=== PATIENT | male | born 1950 | race Caucasian/White ===

== ENCOUNTER 2024-01-10 19:04 | Observation (INO) | payer MEDICARE ==
[~2024-01-10] VITALS: Ht 175.3 cm; Wt 83.0 kg
[2024-01-10 19:10] VITALS: TEMP 99.6
[2024-01-10] MEDS: ASPIRIN 81 MG CHEW TAB PO ONE ×2 (20:00→22:00)
[2024-01-10 21:23] VITALS: PULSE 72; RESP 18
[2024-01-10] MEDS: NITROGLYCERIN 0.4 MG SUBL SL ONE (21:24)
[2024-01-10] MEDS ORDERED: ONDANSETRON HCL INJ 2MG/ML 2ML 2 MG/ML VIAL IV PRN (22:00)
[2024-01-10 23:00] VITALS: BP 139/73; PULSE 82; RESP 22; TEMP 98.5; O2SAT 98
[2024-01-10 23:30] VITALS: BP_SYST 108; BP_SYST 139; BP_DIAS 62; BP_DIAS 73; PULSE 74; PULSE 82; RESP 18; RESP 20; TEMP 98.5; O2SAT 97; O2SAT 98
[2024-01-11] VITALS (10 sets, daily range): BP systolic 116–141; BP diastolic 64–78; PULSE 62–82; RESP 16–20; TEMP 97.4–98.5; O2SAT 96–99
[2024-01-11] MEDS ORDERED: POTASSIUM CITR10 MEQ PO (02:32)
[2024-01-11] MEDS ORDERED: METOPROLOL TART25 MG PO (02:49)
[2024-01-11] MEDS ORDERED: ALLOPURINOL100 MG PO (02:49)
[2024-01-11] MEDS ORDERED: CLOPIDOGREL75 MG PO (02:49)
[2024-01-11] MEDS ORDERED: LEVOTHYROXINE88 MCG PO (02:50)
[2024-01-11] MEDS ORDERED: PRAVASTATIN SOD80 MG PO (02:53)
[2024-01-11] MEDS ORDERED: ASPIRIN81 MG PO (02:53)
[2024-01-11] MEDS ORDERED: ZETIA10 MG PO (02:59)
[2024-01-11] MEDS ORDERED: FENOFIBRATE145 MG PO (03:01)
[2024-01-11] MEDS ORDERED: COQ-10100 MG PO (03:03)
[2024-01-11] MEDS ORDERED: VENTOLIN HFA18 GM INH (03:06)
[2024-01-11] MEDS ORDERED: FLONASE ALLERG9.9 ML INH (03:10)
[2024-01-11 08:10] LABS: CREATINE KINASE 119 IU/L (30-200)
[2024-01-11 08:21] LABS: TROPONIN I < 0.001 ng/mL (0-0.300)
[2024-01-11] MEDS: ASPIRIN 81 MG ENTERIC COATED PO SCH (09:00)
[2024-01-11] MEDS ORDERED: ALBUTEROL 90 MCG/ACT INHALER INH PRN (11:45)
[2024-01-11] MEDS ORDERED: ACETAMINOPHEN 325 MG TAB PO PRN (11:45)
[2024-01-11 12:15] LABS: BASOPHILS # (AUTO) 0.1 (0.0-0.1); BASOPHILS % 0.3 % (0.0-1.0); EOSINOPHILS # (AUTO) 0.3 (0.0-0.4); HEMOGLOBIN 11.9 g/dL (14.0-18.0); LYMPHOCYTES # (AUTO) 13.5 (1.0-3.2); LYMPHOCYTES % 44.5 % (18.0-39.1); MEAN CORPUSCULAR HEMOGLOBIN 28.2 pg (28-32); MEAN CORPUSCULAR HGB CONC 31.3 g/dL (31-35); MONOCYTES # (AUTO) 14.1 (0.2-0.8); MONOCYTES % 46.6 % (4.4-11.3); NEUTROPHILS # (AUTO) 2.3 (2.1-6.9); NEUTROPHILS % 7.5 % (38.7-80.0); PLATELET COUNT 133 x10e3/uL (140-360); RED BLOOD COUNT 4.22 x10e6/uL (4.3-5.7); RED CELL DISTRIBUTION WIDTH 14.5 % (11.7-14.4); WHITE BLOOD COUNT 30.32 x10e3/uL (4.8-10.8)
[2024-01-11 12:24] LABS: ALBUMIN 4.1 g/dL (3.5-5.0); ALBUMIN/GLOBULIN RATIO 2.2 (0.8-2.0); BILIRUBIN,TOTAL 0.4 mg/dL (0.2-1.2); CREATININE, SERUM 1.53 mg/dL (0.72-1.25)
[2024-01-11 13:46] LABS: LYMPHOCYTES % (MANUAL) 58 % (19-48); MONOCYTES % (MANUAL) 8 % (3.4-9.0); NEUTROPHILS % (MANUAL) 19 % (40-74); REACTIVE LYMPHOCYTES 15
[2024-01-11 13:49] LABS: PLATELET ESTIMATE ADEQUATE; PLATELET MORPHOLOGY COMMENT NORMAL; RBC MORPHOLOGY COMMENT NORMAL
[2024-01-11] MEDS: SODIUM CHLORIDE 0.9% 1000ML 1,000 ML IV SCH (14:12)
[2024-01-11] MEDS: POTASSIUM CITRATE ER 10 MEQ TAB PO SCH (14:12)
[2024-01-11] MEDS: ALBUTEROL/IPRATROPIUM 3 ML NEB NEB SCH (14:34)
[2024-01-11] MEDS: METOPROLOL TARTRATE 25 MG TAB PO SCH (17:03)
[2024-01-11] MEDS: GUAIFENESIN/DEXTROMETHORPHAN LIQD 5 ML UDC NG PRN (17:06)
[2024-01-11 17:59] LABS: BILIRUBIN,URINE NEGATIVE (NEGATIVE); CLARITY,URINE CLEAR (CLEAR); COLOR,URINE YELLOW (YELLOW); GLUCOSE, URINE NEGATIVE (NEGATIVE); KETONES,URINE NEGATIVE (NEGATIVE); LEUKOCYTE ESTERASE ,URINE NEGATIVE (NEGATIVE); NITRITE,URINE NEGATIVE (NEGATIVE); PH,URINE 6 (5 - 7); PROTEIN,URINE DIPSTICK NEGATIVE (NEGATIVE); URINE UROBILINOGEN 0.2 mg/dL (0.2 - 1)
[2024-01-11 18:05] LABS: WBC,URINE (MAN) 0-5 /HPF (0-5)
[2024-01-11 18:06] LABS: BACTERIA,URINE FEW /HPF; EPITHELIAL CELLS,URINE RARE /LPF
[2024-01-11] MEDS: EZETIMIBE 10 MG TAB PO SCH (21:02)
[2024-01-11] MEDS: SIMVASTATIN 40 MG TAB PO SCH (21:03)
[2024-01-11] MEDS: CLOPIDOGREL BISULFATE 75 MG TAB PO SCH (22:03)
[2024-01-12] VITALS (9 sets, daily range): BP systolic 98–147; BP diastolic 59–69; PULSE 57–70; RESP 16–18; TEMP 97.5–98.4; O2SAT 97–100
[2024-01-12 05:38] LABS: BASOPHILS # (AUTO) 0.1 (0.0-0.1); BASOPHILS % 0.3 % (0.0-1.0); EOSINOPHILS # (AUTO) 0.3 (0.0-0.4); EOSINOPHILS % 1.1 % (0.0-6.0); HEMATOCRIT 36.1 % (38.2-49.6); HEMOGLOBIN 11.6 g/dL (14.0-18.0); LYMPHOCYTES # (AUTO) 12.9 (1.0-3.2); LYMPHOCYTES % 49.6 % (18.0-39.1); MEAN CORPUSCULAR HEMOGLOBIN 28.8 pg (28-32); MEAN CORPUSCULAR HGB CONC 32.1 g/dL (31-35); MEAN CORPUSCULAR VOLUME 89.6 fL (81-99); MONOCYTES # (AUTO) 10.2 (0.2-0.8); MONOCYTES % 39.4 % (4.4-11.3); NEUTROPHILS # (AUTO) 2.5 (2.1-6.9); NEUTROPHILS % 9.5 % (38.7-80.0); PLATELET COUNT 125 x10e3/uL (140-360); RED BLOOD COUNT 4.03 x10e6/uL (4.3-5.7); RED CELL DISTRIBUTION WIDTH 14.3 % (11.7-14.4)
[2024-01-12] MEDS: LEVOTHYROXINE SODIUM 88 MCG TAB PO SCH (05:40)
[2024-01-12 06:00] LABS: CALCIUM 8.8 mg/dL (8.4-10.2); CREATININE, SERUM 1.35 mg/dL (0.72-1.25)
[2024-01-12 06:33] LABS: CREATINE KINASE 77 IU/L (30-200)
[2024-01-12 06:40] LABS: TROPONIN I < 0.001 ng/mL (0-0.300)
[2024-01-12 07:51] LABS: EOSINOPHILS % (MANUAL) 5 % (0-7); LYMPHOCYTES % (MANUAL) 73 % (19-48); MONOCYTES % (MANUAL) 2 % (3.4-9.0); NEUTROPHILS % (MANUAL) 20 % (40-74)
[2024-01-12 07:52] LABS: PLATELET ESTIMATE SLIGHTLY DECREASED; PLATELET MORPHOLOGY COMMENT NORMAL; RBC MORPHOLOGY COMMENT NORMAL; SMUDGE CELLS MODERATE
[2024-01-12] MEDS: ALLOPURINOL 100 MG TAB PO SCH (08:59)
[2024-01-12] MEDS: FLUTICASONE PROPIONATE NASAL SPRAY NS SCH (08:59)
[2024-01-12] MEDS ORDERED: ASPIRIN 81 MG CHEW TAB PO SCH (09:00)
[2024-01-12] MEDS ORDERED: ONDANSETRON HCL 4 MG ORAL DISINTEGRATING TAB PO PRN (11:15)
[2024-01-12] MEDS ORDERED: VENTOLIN HFA18 GM INH (13:05)
[2024-01-12] MEDS ORDERED: FENOFIBRATE 145 MG TAB PO SCH (21:00)
== END 2024-01-12 14:18 | disposition home or self-care (01) ==
LOC: FSED 19:10 → ERHOLD 21:56 → MED/SURG3 22:26
PROVIDERS: ADMIT Internal Medicine; ATTEND Internal Medicine
DX: R07.9 Chest pain, unspecified (principal); I25.810 Atherosclerosis of coronary artery bypass graft(s) without angina pectoris; I10 Essential (primary) hypertension; E78.00 Pure hypercholesterolemia, unspecified; E03.9 Hypothyroidism, unspecified; C91.10 Chronic lymphocytic leukemia of B-cell type not having achieved remission; N17.9 Acute kidney failure, unspecified; R10.9 Unspecified abdominal pain; I45.10 Unspecified right bundle-branch block; Z11.52 Encounter for screening for COVID-19; Z88.2 Allergy status to sulfonamides; Z91.041 Radiographic dye allergy status; Z79.82 Long term (current) use of aspirin; Z79.02 Long term (current) use of antithrombotics/antiplatelets; Z79.899 Other long term (current) drug therapy; Z95.1 Presence of aortocoronary bypass graft; Z87.442 Personal history of urinary calculi
CPT/HCPCS: 0223U; 36415 ×2; 71046; 74176; 80048; 80053 ×2; 80061; 81001; 81003; 82550 ×2; 83880; 84484 ×3; 85025 ×3; 85610; 93005; 94640 ×3; 94799 ×2; 99284; G0378 ×3; J7030 ×2